=== PATIENT | female | born 1945 | race Caucasian/White ===

== ENCOUNTER → 2023-11-04 07:28 | Outpatient (REF) | payer MEDICARE, OTHER, SELFPAY ==
[2023-11-04 08:04] LABS: % Immature Granulocytes 0.3 % (0-0.5); % Lymphocytes 23.3 % (20.5-51.1); % Neutrophils 59.4 % (42.2-75.2); Absolute Eosinophils 0.2 10^3/uL (0-0.7); Absolute Lymphocytes 0.9 10^3/uL (1.2-3.4); Absolute Monocytes 0.5 10^3/uL (0.1-0.6); Absolute Neutrophils 2.4 10^3/uL (1.4-6.5); Hematocrit 36.2 % (37.0-47.0); Hemoglobin 11.6 g/dL (12.0-16.0); Mean Corpuscular Hgb 30.3 pg (27.0-31.0); Mean Corpuscular Volume 94.5 fL (81.0-99.0); Mean Platelet Volume 11.9 fL (7.4-10.4); Nucleated Red Blood Cells % 0 %; Platelet Count 181 10^3/uL (130-400); Red Blood Cell Count 3.83 10^6/uL (4.20-5.40); Red Cell Dist. Width 12.8 % (11.5-14.5)
[2023-11-04 08:49] LABS: Erythrocyte Sed Rate 24 mm/hour (0-20)
[2023-11-04 08:59] LABS: ALT (SGPT) 20 U/L (0-35); AST (SGOT) 27 U/L (14-36); Albumin 3.6 g/dl (3.5-5.0); Alkaline Phosphatase 55 U/L (38-126); Blood Urea Nitrogen 22 mg/dl (7-17); Calcium 8.9 mg/dl (8.4-10.2); Carbon Dioxide 25 mmol/L (22-30); Chloride 107 mmol/L (98-107); Glucose 100 mg/dl (70-99); Potassium 4.7 mmol/L (3.5-5.1); Sodium 140 mmol/L (135-145); Total Bilirubin 0.5 mg/dl (0.2-1.3); Total Protein 6.3 g/dl (6.3-8.2); eGFR 46.05
[2023-11-04 09:09] LABS: C-Reactive Protein < 5.00 mg/L (0.0-10.00)
== END ==
LOC: REG 07:28
PROVIDERS: ATTENDING PHYSICIAN Nurse Practitioner Family
DX: L03.90 Cellulitis, unspecified (principal)
CPT/HCPCS: 36415; 80053; 85025; 85652; 86140

== ENCOUNTER 2023-11-05 13:39 | Emergency (ER) | payer MEDICARE, OTHER, SELFPAY ==
[2023-11-05 13:50] VITALS: BP 141/84
[2023-11-05 14:10] LABS: % Eosinophils 4.2 % (0-6); % Immature Granulocytes 0.2 % (0-0.5); % Lymphocytes 20.8 % (20.5-51.1); % Neutrophils 61.8 % (42.2-75.2); Absolute Basophils 0.1 10^3/uL (0-0.2); Absolute Eosinophils 0.2 10^3/uL (0-0.7); Absolute Lymphocytes 1.1 10^3/uL (1.2-3.4); Absolute Monocytes 0.6 10^3/uL (0.1-0.6); Absolute Neutrophils 3.2 10^3/uL (1.4-6.5); Hematocrit 36.3 % (37.0-47.0); Hemoglobin 11.5 g/dL (12.0-16.0); Mean Corp Hgb Conc. 31.7 g/dL (33.0-37.0); Mean Corpuscular Hgb 30.7 pg (27.0-31.0); Mean Corpuscular Volume 97.1 fL (81.0-99.0); Mean Platelet Volume 11.4 fL (7.4-10.4); Nucleated Red Blood Cells % 0 %; Platelet Count 190 10^3/uL (130-400); Red Blood Cell Count 3.74 10^6/uL (4.20-5.40); Red Cell Dist. Width 12.8 % (11.5-14.5); White Blood Cell Count 5.2 10^3/uL (4.8-10.8)
[2023-11-05 14:19] LABS: ALT (SGPT) 20 U/L (0-35); AST (SGOT) 24 U/L (14-36); Albumin 3.6 g/dl (3.5-5.0); Alkaline Phosphatase 56 U/L (38-126); Blood Urea Nitrogen 19 mg/dl (7-17); Calcium 8.5 mg/dl (8.4-10.2); Carbon Dioxide 21 mmol/L (22-30); Chloride 110 mmol/L (98-107); Glucose 78 mg/dl (70-99); Potassium 4.4 mmol/L (3.5-5.1); Sodium 136 mmol/L (135-145); Total Bilirubin 0.3 mg/dl (0.2-1.3); Total Protein 6.2 g/dl (6.3-8.2); eGFR 51.11
--- NOTE | 2023-11-05 15:53 | ED.GENMED ---
History of Present Illness
General
Chief Complaint: Swelling
Source: patient
Exam Limitations: none
Time Seen by Provider: 11/05/23 15:51
Nursing documentation reviewed up to this point in time: agreed with
Travel History
Have you had any contact with someone who has COVID-19?: No
Do you have any symptoms of coronavirus? Fever > 100 degrees, chills, cough, shortness of breath, sore throat, loss of taste or smell, muscle aches, or headache?: No
History of Present Illness
History of Present Illness:
78 yo female w h/o L TKR 2000, R knee replacement 2017 here for swelling and pain right calf.
Recently diagnosed with cellulitis LLE after small wound from granddaughter kicking her left roman. Continues on Bactrim has had total 6 doses and states the area is slowly improving
She flew to [place] 10/26 and flew back on 10/31
The day she flew she noted swelling of both feet.
She played tennis several times and the swelling would go down but returned when no playing.
She has had persistent right calf pain and swelling since 10/26
Denies SOB,CP
Denies fever/chills
Past History
Past History
ED Past Medical History: Hypothyroidism and Other (Vertigo, gastroenteritis, vestibular migraine)
ED Past Surgical History: Orthopedic (Total knee replacement R&L knees)
Social History
Tobacco: Non-smoker
Alcohol: None
Drug: None
Living: with family
Employment: Retired
Family History
Family History: Other
Review of Systems
Review of Systems
Allergies reviewed?: Yes
All Other Systems: ROS reviewed and negative except as documented in HPI and ROS
Constitutional: Denies fever or chills
Respiratory: Denies cough or trouble breathing
Cardiac: Denies chest pain
ABD/GI: Denies abdominal pain, nausea or vomiting
Musculoskeletal: Reports edema (swelling R and left LE) and neck pain (chronic)
Skin: Reports other (scrape left roman healing well)
Neurological: Reports no symptoms
Phy Exam
Physical Exam
Physical Exam:
GENERAL: No acute distress. A&Ox3.
CONSTITUTIONAL: Afebrile.
EYES: clear, conjunctivae normal
RESPIRATORY: Regular respirations, nonlabored, lungs clear.
CARDIOVASCULAR: Regular rate and rhythm, no murmurs, no rubs.
GI: Soft, nontender, normal BS
MUSCULOSKELETAL: RLE with mild swelling, no redness or warmth, mild tenderness mid to lower calf. Distal neurovascular intact. LLE with mild swelling, roman clear dressing intact, no redness, warmth. No calf tenderness. Moves with ease. Well
perfused.
SKIN: Warm, dry, pink. Quarter sized darkened area, well healing abrasion, left roman is healing well, no drainage, dressing changed
PSYCH: Normal mood and affect. Well kept, interactive and appropriate
NEUROLOGIC: Awake, alert and oriented. No focal neurological deficits
Scores
Heart Failure Risk
Heart Failure Risk Score: Not Applicable
Course
Orders/Labs/Results
Orders:
Orders
11/05/23 13:54
Peripheral Venous Lwr Ext Bilat US [US Periph Venous LOWER Ext Warner] Urgent
Comment:
Reason For Exam: swelling
11/05/23 13:58
Complete Blood Count/With Diff Urgent
Comprehensive Metabolic Panel Urgent
Abnormal Lab Results
11/05/23
13:58
RBC 3.74 L 10^6/uL
(4.20-5.40)
Hgb 11.5 L g/dL
(12.0-16.0)
Hct 36.3 L %
(37.0-47.0)
MCHC 31.7 L g/dL
(33.0-37.0)
MPV 11.4 H fL
(7.4-10.4)
Absolute Lymphs (auto) 1.1 L 10^3/uL
(1.2-3.4)
Monocytes % 12.0 H %
(1.7-9.3)
Chloride 110 H mmol/L
(98-107)
Carbon Dioxide 21 L mmol/L
(22-30)
BUN 19 H mg/dl
(7-17)
Creatinine 1.1 H mg/dL
(0.6-1.0)
Total Protein 6.2 L g/dl
(6.3-8.2)
11/05/23 13:58
11/05/23 13:58
Vital Signs
Initial and Last Documented VS:
Initial Vital Signs
Temp Pulse Resp BP Pulse Ox
98.4 F 85 16 141/84 98
11/05/23 13:50 11/05/23 13:50 11/05/23 13:50 11/05/23 13:50 11/05/23 13:50
Last Documented Vital Signs
Temp Pulse Resp BP Pulse Ox
98.4 F 85 16 141/84 98
11/05/23 13:50 11/05/23 13:50 11/05/23 13:50 11/05/23 13:50 11/05/23 13:50
MDM/Problems Addressed
Differential Diagnosis Includes:
DVT, PVD, dependent edema
MDM/Problems Addressed:
78 yo female w h/o L TKR 2000, R knee replacement 2017 here for swelling and pain right calf.
Recently diagnosed with cellulitis LLE after small wound from granddaughter kicking her left roman. Continues on Bactrim has had total 6 doses and states the area is slowly improving
She flew to [place] 10/26 and flew back on 10/31
The day she flew she noted swelling of both feet.
She played tennis several times and the swelling would go down but returned when no playing.
She has had persistent right calf pain and swelling since 10/26
Denies SOB,CP
Denies fever/chills
Afebrile, NAD
11/05/2023 1618 PM
CBC with no clinically significant abnormality
CMP: No clinically significant abnormality
US neg for DVT
Most likely dependent edema
*Critical Care Note
Total Time (30-74mins, 75-104mins- exclusive of procedures): Not Applicable
ED Attending Note
-
Portions of this chart may have been created with voice recognition software.� Occasional wrong word or��sound alike� substitutions may have occurred due to the inherent limitations of voice recognition software.
Discharge Plan
Departure
Patient Disposition: Home (Routine Discharge)
Date of Disposition: 11/05/23
Time of Disposition: 18:06
Patient with high blood pressure during this ER visit?: No
Condition: Good
Discharge Problem:
Leg swelling
Instructions: Dependent Edema (DC)
Prescriptions:
No Action
levothyroxine 50 MCG tablet
50 mcg PO DAILY
ibuprofen 200 MG tablet
400 mg PO Q6HPRN PRN (Reason: mild pain)
docusate sodium 100 MG capsule
100 mg PO BIDPRN PRN (Reason: constipation)
metaxalone [Skelaxin] 800 MG tablet
800 mg PO DAILYPRN PRN (Reason: muscle spasm)
metoclopramide HCl 5 MG tablet
5 mg PO Q12H PRN (Reason: vertigo) Qty: 30 0RF
Rx Instructions:
No more then 2 doses a day
aspirin [Adult Aspirin Regimen] 81 MG tablet,delayed release (DR/EC)
81 mg PO DAILY Qty: 30 0RF
atorvastatin [Lipitor] 40 MG tablet
40 mg PO DAILY Qty: 30 0RF
metoclopramide HCl 5 mg/5 mL solution
5 mg PO Q8H PRN (Reason: nausea and vomiting) Qty: 100 0RF
Referrals:
Asuncion Leigh CRNP [Family Provider] - As needed
Activity Restrictions/Additional Instructions:
As we discussed, your Ultrasound showed NO clots. Support stockings may help the swelling.
See your doctor in 2-3 weeks if the swelling continues or worsens
Interventions
Interventions:
*Risk Screen - Suicide Last Done: 11/05/23 13:50
*General Assessment Last Done: 11/05/23 13:50
*Neglect/Abuse Screening Last Done: 11/05/23 13:50
ED- Fall Risk Assessment Last Done: 11/05/23 18:23
*ED COVID-19 Vaccine History Last Done: 11/05/23 13:50
*Nursing Disposition Last Done: 11/05/23 18:23
ED- Cardiac Assessment Last Done: 11/05/23 17:10
ED- Pulmonary Assessment Last Done: 11/05/23 17:10
ED-Skin Assessment Last Done: 11/05/23 17:10
Discharge Date and Time
Discharge Date/Time: 11/05/23 18:24
Print Language: KOREAN
== END 2023-11-05 18:24 | disposition home or self-care (01) ==
LOC: EMR 13:39
PROVIDERS: Emergency Medicine; EMERGENCY PHYSICIAN Emergency Medicine; FAMILY PHYSICIAN Nurse Practitioner Family
DX: R22.41 Localized swelling, mass and lump, right lower limb (principal)
CPT/HCPCS: 99284; 80053; 85025; 93970

== ENCOUNTER → 2024-01-20 13:35 | Outpatient (REF) | payer MEDICARE, OTHER, SELFPAY | LOC: RCS 13:35 | PROVIDERS: ATTENDING PHYSICIAN Physician Assistant Medical; FAMILY PHYSICIAN Family Medicine | DX: R06.02 Shortness of breath (principal); R60.0 Localized edema | CPT/HCPCS: 93306 ==

== ENCOUNTER → 2024-05-07 08:22 | Outpatient (REF) | payer MEDICARE, OTHER, SELFPAY ==
[2024-05-07 09:17] LABS: % Basophils 0.8 % (0-2); % Eosinophils 3.6 % (0-6); % Immature Granulocytes 0.4 % (0-0.5); % Lymphocytes 23.9 % (20.5-51.1); % Monocytes 9.7 % (1.7-9.3); % Neutrophils 61.6 % (42.2-75.2); Absolute Eosinophils 0.2 10^3/uL (0-0.7); Absolute Lymphocytes 1.1 10^3/uL (1.2-3.4); Absolute Monocytes 0.5 10^3/uL (0.1-0.6); Absolute Neutrophils 2.9 10^3/uL (1.4-6.5); Hematocrit 35.7 % (37.0-47.0); Hemoglobin 11.5 g/dL (12.0-16.0); Mean Corp Hgb Conc. 32.2 g/dL (33.0-37.0); Mean Corpuscular Hgb 30.8 pg (27.0-31.0); Mean Corpuscular Volume 95.7 fL (81.0-99.0); Mean Platelet Volume 11.7 fL (7.4-10.4); Nucleated Red Blood Cells % 0 %; Platelet Count 176 10^3/uL (130-400); Red Blood Cell Count 3.73 10^6/uL (4.20-5.40); Red Cell Dist. Width 12.6 % (11.5-14.5); White Blood Cell Count 4.7 10^3/uL (4.8-10.8)
[2024-05-07 09:22] LABS: Erythrocyte Sed Rate 20 mm/hour (0-20)
[2024-05-07 10:23] LABS: C-Reactive Protein < 5.00 mg/L (0.0-10.00)
[2024-05-07 10:24] LABS: ALT (SGPT) 18 U/L (0-35); AST (SGOT) 26 U/L (14-36); Albumin 3.9 g/dl (3.5-5.0); Alkaline Phosphatase 47 U/L (38-126); Blood Urea Nitrogen 20 mg/dl (7-17); Carbon Dioxide 26 mmol/L (22-30); Chloride 106 mmol/L (98-107); Glucose 90 mg/dl (70-99); HDL Cholesterol 61 mg/dl; LDL Cholesterol, Calculated 176 mg/dl; Potassium 4.9 mmol/L (3.5-5.1); Sodium 142 mmol/L (135-145); Total Bilirubin 0.6 mg/dl (0.2-1.3); Total Cholesterol 259 mg/dl (50-199); Total Protein 6.5 g/dl (6.3-8.2); Triglyceride 114 mg/dl (10-149); Very Low Density Lipoprotein 22 mg/dl (0-30); eGFR 56.95
[2024-05-09 00:43] LABS: ANA, IgG Reflex to HEp-2 None Detected (None Detected)
[2024-05-09 01:50] LABS: SSA 52 (Ro)(ENA) Ab, IgG 3 AU/mL (0-40); SSA 60 (Ro)(ENA) Ab, IgG 1 AU/mL (0-40); SSB (La)(ENA) Ab, IgG 27 AU/mL (0-40)
== END ==
LOC: REG 08:22
PROVIDERS: ATTENDING PHYSICIAN Nurse Practitioner Family
DX: R68.2 Dry mouth, unspecified (principal); Z13.220 Encounter for screening for lipoid disorders; E78.41 Elevated Lipoprotein(a); R79.9 Abnormal finding of blood chemistry, unspecified
CPT/HCPCS: 36415; 80053; 80061; 85025; 85652; 86038; 86140; 86235; 86430

== ENCOUNTER → 2024-08-10 17:54 | Outpatient (REF) | payer MEDICARE, OTHER, SELFPAY | LOC: RAD 17:54 | PROVIDERS: ATTENDING PHYSICIAN Student in an Organized Health Care Education/Training Program | DX: M50.123 Cervical disc disorder at C6-C7 level with radiculopathy (principal); M81.0 Age-related osteoporosis without current pathological fracture | CPT/HCPCS: 72040; 72072; 72100 ==

== ENCOUNTER → 2024-09-08 14:16 | Outpatient (REF) | payer MEDICARE, OTHER, SELFPAY ==
[2024-09-08 14:51] LABS: % Basophils 0.7 % (0-2); % Eosinophils 3.1 % (0-6); % Immature Granulocytes 0.2 % (0-0.5); % Lymphocytes 22.4 % (20.5-51.1); % Monocytes 10.1 % (1.7-9.3); % Neutrophils 63.5 % (42.2-75.2); Absolute Eosinophils 0.2 10^3/uL (0-0.7); Absolute Lymphocytes 1.3 10^3/uL (1.2-3.4); Absolute Monocytes 0.6 10^3/uL (0.1-0.6); Absolute Neutrophils 3.7 10^3/uL (1.4-6.5); Hematocrit 37.4 % (37.0-47.0); Hemoglobin 12.1 g/dL (12.0-16.0); Mean Corp Hgb Conc. 32.4 g/dL (33.0-37.0); Mean Corpuscular Hgb 30.9 pg (27.0-31.0); Mean Corpuscular Volume 95.7 fL (81.0-99.0); Mean Platelet Volume 11.4 fL (7.4-10.4); Nucleated Red Blood Cells % 0 %; Platelet Count 191 10^3/uL (130-400); Red Blood Cell Count 3.91 10^6/uL (4.20-5.40); Red Cell Dist. Width 12.7 % (11.5-14.5); White Blood Cell Count 5.9 10^3/uL (4.8-10.8)
[2024-09-08 15:39] LABS: ALT (SGPT) 23 U/L (0-35); AST (SGOT) 29 U/L (14-36); Albumin 4.3 g/dl (3.5-5.0); Alkaline Phosphatase 72 U/L (38-126); Blood Urea Nitrogen 22 mg/dl (7-17); Calcium 9.2 mg/dl (8.4-10.2); Carbon Dioxide 26 mmol/L (22-30); Chloride 102 mmol/L (98-107); Glucose 93 mg/dl (70-99); Potassium 4.9 mmol/L (3.5-5.1); Sodium 137 mmol/L (135-145); Total Bilirubin 0.7 mg/dl (0.2-1.3); Total Protein 6.9 g/dl (6.3-8.2)
[2024-09-08 16:09] LABS: TSH 2.96 uIU/ml (0.47-4.68)
== END ==
LOC: REG 14:16
PROVIDERS: ATTENDING PHYSICIAN Student in an Organized Health Care Education/Training Program; FAMILY PHYSICIAN Nurse Practitioner Family; REFERRING PHYSICIAN Family Medicine
DX: E55.9 Vitamin D deficiency, unspecified (principal); M50.90 Cervical disc disorder, unspecified, unspecified cervical region; M81.0 Age-related osteoporosis without current pathological fracture; R94.6 Abnormal results of thyroid function studies
CPT/HCPCS: 36415; 80053; 82330; 82652; 84443; 85025

== ENCOUNTER 2024-12-13 21:08 | Emergency (ER) | payer MEDICARE, OTHER, SELFPAY ==
[2024-12-13 21:14] VITALS: BP 121/74
[2024-12-13] MEDS: ZOFRAN 4 MG IV (21:26)
[2024-12-13 21:33] LABS: % Basophils 0.3 % (0-2); % Immature Granulocytes 0.3 % (0-0.5); % Lymphocytes 5.2 % (20.5-51.1); % Neutrophils 85.2 % (42.2-75.2); Absolute Lymphocytes 0.4 10^3/uL (1.2-3.4); Absolute Monocytes 0.6 10^3/uL (0.1-0.6); Absolute Neutrophils 5.9 10^3/uL (1.4-6.5); Hematocrit 40.8 % (37.0-47.0); Hemoglobin 13.3 g/dL (12.0-16.0); Mean Corp Hgb Conc. 32.6 g/dL (33.0-37.0); Mean Corpuscular Hgb 30.6 pg (27.0-31.0); Mean Platelet Volume 11.6 fL (7.4-10.4); Nucleated Red Blood Cells % 0 %; Platelet Count 166 10^3/uL (130-400); Red Blood Cell Count 4.34 10^6/uL (4.20-5.40); Red Cell Dist. Width 12.9 % (11.5-14.5); White Blood Cell Count 6.9 10^3/uL (4.8-10.8)
[2024-12-13 21:44] LABS: Lactic Acid 0.7 mmol/L (0.7-2.0)
[2024-12-13 21:49] LABS: ALT (SGPT) 34 U/L (0-35); AST (SGOT) 40 U/L (14-36); Albumin 4.1 g/dl (3.5-5.0); Alkaline Phosphatase 52 U/L (38-126); Blood Urea Nitrogen 16 mg/dl (7-17); Calcium 7.9 mg/dl (8.4-10.2); Carbon Dioxide 19 mmol/L (22-30); Chloride 111 mmol/L (98-107); Glucose 133 mg/dl (70-99); Potassium 4.1 mmol/L (3.5-5.1); Sodium 138 mmol/L (135-145); Total Bilirubin 0.6 mg/dl (0.2-1.3); Total Protein 6.9 g/dl (6.3-8.2); eGFR 56.95
[2024-12-13 21:50] LABS: Lipase 151 U/L (23-300)
[2024-12-14 01:02] VITALS: BP 122/76
--- NOTE | 2024-12-14 01:47 | ED.GENMED ---
History of Present Illness
<CHRISTOPHER Carrion Last Filed: 12/14/24 09:30>
General
Chief Complaint: Abdominal Symptoms
Source: patient
Exam Limitations: none
Time Seen by Provider: 12/14/24 01:42
Nursing documentation reviewed up to this point in time: agreed with
History of Present Illness
History of Present Illness:
79-year-old female with a past medical history of Lyme disease, vestibular migraines, hypothyroidism, GERD, presents emergency department today with concerns of diffuse abdominal pain and vomiting. Patient reports that this started yesterday
evening around 6 PM. Patient states that she was sitting in her living room with it started. She reports that was not related to a meal. Patient describes the pain as cramping and reports that it wraps around to her back. She denies any fevers
or chills. She states that her granddaughter was recently sick with a stomach virus and she was in contact with her. She states that she did have 1 episode of diarrhea. She denies any rectal bleeding. She denies any dysuria or hematuria. She
denies any chest pain or shortness of breath. Patient had an appendectomy in the past but denies any other intra-abdominal surgeries. She denies any history of bowel obstruction.
Past History
<Mery Braun PA-C - Last Filed: 12/14/24 09:30>
Past History
ED Past Medical History: Hypothyroidism and Other (Vertigo, gastroenteritis, vestibular migraine)
ED Past Surgical History: Orthopedic (Total knee replacement R&L knees)
Social History
Tobacco: Non-smoker
Alcohol: None
Drug: None
Living: with family
Employment: Retired
Family History
Family History: Other
Review of Systems
<Mery Braun PA-C - Last Filed: 12/14/24 09:30>
Review of Systems
All Other Systems: ROS reviewed and negative except as documented in HPI and ROS
Phy Exam
<Mery Braun PA-C - Last Filed: 12/14/24 09:30>
Physical Exam
Physical Exam:
General: Patient is well appearing and in no acute distress; non-toxic
Skin: Warm and dry, no rashes or lesions
Head: Normocephalic, atraumatic
Eyes: Sclera non-icteric. EOMs intact.
Cardiac: Regular rate and rhythm, no murmurs
Peripheral Vascular: No lower extremity swelling or edema
Pulm: Normal respiratory effort, no wheezes, rales, rhonchi
Abdomen: No abdominal distention noted. Normoactive bowel sounds. Diffuse lower abdominal tenderness noted, no rebound tenderness, no guarding
Neuro: CN II-XII intact, no focal neurologic deficits.
Psychiatric: Appropriate mood and affect.
Course
<Mery Braun PA-C - Last Filed: 12/14/24 09:30>
Orders/Labs/Results
Orders:
Orders
12/13/24 21:24
Complete Blood Count/With Diff Urgent
Comprehensive Metabolic Panel Urgent
Lactic Acid Urgent
Lipase Urgent
Magnesium Urgent
Comment: ADD ON
12/13/24 21:25
Ondansetron Injectable [Zofran] 4 mg IV NOW STA
12/14/24 02:00
Ondansetron Injectable [Zofran] 4 mg IV NOW STA
12/14/24 02:01
CT Abd/pelvis W Iv Cont Urgent
Comment:
Reason For Exam: diffuse lower abdominal pain
12/14/24 04:26
Add On- LAB Urgent
Tests Added?: magnesium
12/14/24 04:45
US Abdomen Limited Urgent
Comment:
Reason For Exam: abdominal pain attn to gallbladder
12/14/24 05:25
Urinalysis Reflex To Culture Urgent
Date Specimen was Collected: 12/14/24
Time Specimen was Collected: 05:24
Urine Microscopic Reflex Cult Urgent
Urine Culture Urgent
LEDA Source: U
Specimen Description:
Date Specimen was Collected: 12/14/24
Time Specimen was Collected: 05:24
12/14/24 05:56
Calcium 200mg(Ca. Carb. 500mg) [Tums Chewable Tablet] 400 mg PO NOW STA
12/14/24 06:05
Ondansetron Injectable [Zofran] 4 mg .ROUTE .STK-MED ONE
Ondansetron Injectable [Zofran] 4 mg IV NOW STA
12/14/24 06:09
0.9% Sodium Chloride 500 ml [Nss] 500 ml IV BOLUS
12/14/24 08:10
Acetaminophen [Tylenol] 650 mg .ROUTE .STK-MED ONE
12/14/24 08:20
COVID-19 Antigen Urgent
Source: Nasal Swab
Influenza A+B Rapid Molecular Urgent
LEDA Source: Nasal Swab
Specimen Description:
12/14/24 08:22
Acetaminophen [Tylenol] 650 mg PO NOW STA
Abnormal Lab Results
12/13/24 12/14/24
21:24 05:25
MCHC 32.6 L g/dL
(33.0-37.0)
MPV 11.6 H fL
(7.4-10.4)
Absolute Lymphs (auto) 0.4 L 10^3/uL
(1.2-3.4)
Neutrophils % 85.2 H %
(42.2-75.2)
Lymphocytes % 5.2 L %
(20.5-51.1)
Chloride 111 H mmol/L
(98-107)
Carbon Dioxide 19 L mmol/L
(22-30)
Glucose 133 H mg/dl
(70-99)
Calcium 7.9 L mg/dl
(8.4-10.2)
AST 40 H U/L
(14-36)
Ur Occult Blood Reflex 3+ A
(Negative)
Leukocyte Esterase Rfl 1+ A
(Negative)
Urine RBC 3-6 A /HPF
(0-2)
Urine Bacteria (Reflex) Few A
(Negative)
Urine Albumin (Reflex) 2+ A
(Neg - Trace)
12/13/24 21:24
12/13/24 21:24
Vital Signs
Initial and Last Documented VS:
Initial Vital Signs
Temp Pulse Resp BP Pulse Ox
97.9 F 97 20 121/74 95
12/13/24 21:14 12/13/24 21:14 12/13/24 21:14 12/13/24 21:14 12/13/24 21:14
Last Documented Vital Signs
Temp Pulse Resp BP Pulse Ox
101.4 F H 103 18 119/59 94
12/14/24 08:12 12/14/24 06:09 12/14/24 06:09 12/14/24 08:06 12/14/24 08:06
<Jacqueline Youssef PA-C - Last Filed: 12/14/24 09:26>
Orders/Labs/Results
Orders:
Orders
12/13/24 21:24
Complete Blood Count/With Diff Urgent
Comprehensive Metabolic Panel Urgent
Lactic Acid Urgent
Lipase Urgent
Magnesium Urgent
Comment: ADD ON
12/13/24 21:25
Ondansetron Injectable [Zofran] 4 mg IV NOW STA
12/14/24 02:00
Ondansetron Injectable [Zofran] 4 mg IV NOW STA
12/14/24 02:01
CT Abd/pelvis W Iv Cont Urgent
Comment:
Reason For Exam: diffuse lower abdominal pain
12/14/24 04:26
Add On- LAB Urgent
Tests Added?: magnesium
12/14/24 04:45
US Abdomen Limited Urgent
Comment:
Reason For Exam: abdominal pain attn to gallbladder
12/14/24 05:25
Urinalysis Reflex To Culture Urgent
Date Specimen was Collected: 12/14/24
Time Specimen was Collected: 05:24
Urine Microscopic Reflex Cult Urgent
Urine Culture Urgent
LEDA Source: U
Specimen Description:
Date Specimen was Collected: 12/14/24
Time Specimen was Collected: 05:24
12/14/24 05:56
Calcium 200mg(Ca. Carb. 500mg) [Tums Chewable Tablet] 400 mg PO NOW STA
12/14/24 06:05
Ondansetron Injectable [Zofran] 4 mg .ROUTE .STK-MED ONE
Ondansetron Injectable [Zofran] 4 mg IV NOW STA
12/14/24 06:09
0.9% Sodium Chloride 500 ml [Nss] 500 ml IV BOLUS
12/14/24 08:10
Acetaminophen [Tylenol] 650 mg .ROUTE .STK-MED ONE
12/14/24 08:20
COVID-19 Antigen Urgent
Source: Nasal Swab
Influenza A+B Rapid Molecular Urgent
LEDA Source: Nasal Swab
Specimen Description:
12/14/24 08:22
Acetaminophen [Tylenol] 650 mg PO NOW STA
Abnormal Lab Results
12/13/24 12/14/24
21:24 05:25
MCHC 32.6 L g/dL
(33.0-37.0)
MPV 11.6 H fL
(7.4-10.4)
Absolute Lymphs (auto) 0.4 L 10^3/uL
(1.2-3.4)
Neutrophils % 85.2 H %
(42.2-75.2)
Lymphocytes % 5.2 L %
(20.5-51.1)
Chloride 111 H mmol/L
(98-107)
Carbon Dioxide 19 L mmol/L
(22-30)
Glucose 133 H mg/dl
(70-99)
Calcium 7.9 L mg/dl
(8.4-10.2)
AST 40 H U/L
(14-36)
Ur Occult Blood Reflex 3+ A
(Negative)
Leukocyte Esterase Rfl 1+ A
(Negative)
Urine RBC 3-6 A /HPF
(0-2)
Urine Bacteria (Reflex) Few A
(Negative)
Urine Albumin (Reflex) 2+ A
(Neg - Trace)
12/13/24 21:24
12/13/24 21:24
Vital Signs
Initial and Last Documented VS:
Initial Vital Signs
Temp Pulse Resp BP Pulse Ox
97.9 F 97 20 121/74 95
12/13/24 21:14 12/13/24 21:14 12/13/24 21:14 12/13/24 21:14 12/13/24 21:14
Last Documented Vital Signs
Temp Pulse Resp BP Pulse Ox
101.4 F H 103 18 119/59 94
12/14/24 08:12 12/14/24 06:09 12/14/24 06:09 12/14/24 08:06 12/14/24 08:06
Lichalt;Mery Braun PA-C - Last Filed: 12/14/24 09:30>
MDM/Problems Addressed
Differential Diagnosis Includes:
Differentials include small bowel obstruction, diverticulitis, gastroenteritis, colitis
MDM/Problems Addressed:
79-year-old female with a past medical history of Lyme disease, vestibular migraines, hypothyroidism, GERD, presents emergency department today with concerns of diffuse abdominal pain and vomiting. Patient reports that this started yesterday
evening around 6 PM. Patient states that she was sitting in her living room with it started. The pain resolved without intervention. Patient is declining medication for pain at this time. On PE, patient is well appearing, in no acute distress, she
has minimal abdominal tenderness. She is afebrile. She CT scan shows acute gastroenteritis with and gall bladder distension with normal wbc. US obtained which is negative for cholecystitis. Patient had midly low calcium, was given calcium tablets
and advised to follow up with her primary. Patient stable for discharge.
Chronic conditions affecting care:
lyme, vestibular migraines
<Mery Braun PA-C - Last Filed: 12/14/24 09:30>
*Pulse Oximetry
Patient hypoxic: no
*Critical Care Note
Total Time (30-74mins, 75-104mins- exclusive of procedures): Not Applicable
Data Reviewed
Review of Other/Old Records Reveals: Records (reviewed er doc from 11/05/23, reviewed discharge from 05/28/18 patient seen for persistent vertigo diagnosed with vestibular migraine)
Source: patient and records
<Jacqueline Youssef PA-C - Last Filed: 12/14/24 09:26>
*Critical Care Note
Total Time (30-74mins, 75-104mins- exclusive of procedures): Not Applicable
<Mery Braun PA-C - Last Filed: 12/14/24 09:30>
Patient Management
Escalation/DeEscalation of care consider admission/obs:
Admit not indicated patient stable for discharge
<Jacqueline Youssef PA-C - Last Filed: 12/14/24 09:26>
Update Note
Update Note:
Patient spiked a fever of 101.4 at time of discharge and I was asked to evaluate patient by nursing staff. On reassessment, patient is well appearing and states she feels much better than when she arrived. She denies any abdominal pain currently and
is tolerating PO intake. Both white count and lactate are normal. Exam reassuring without any focal signs of infection. Abdomen is soft and non-tender. COVID/flu testing added which are negative. I discussed case with initial provider. Patient
remains stable for discharge. She was advised to f/u with her PCP in the next 1-2 days. Strict ED return precautions reviewed.
ED Attending Note
<Mery Braun PA-C - Last Filed: 12/14/24 09:30>
-
Portions of this chart may have been created with voice recognition software.� Occasional wrong word or��sound alike� substitutions may have occurred due to the inherent limitations of voice recognition software.
Discharge Plan
Departure
Patient Disposition: Home (Routine Discharge)
Date of Disposition: 12/14/24
Time of Disposition: 07:23
Patient with high blood pressure during this ER visit?: Yes
Condition: Good
Discharge Problem:
Acute gastroenteritis
Instructions: Viral gastroenteritis in adults, BLOOD PRESSURE
Prescriptions:
New
ondansetron 4 mg tablet,disintegrating
4 mg PO Q4H PRN (Reason: nausea and vomiting) Qty: 10 0RF
No Action
levothyroxine 50 MCG tablet
50 mcg PO DAILY
metaxalone [Skelaxin] 800 MG tablet
800 mg PO DAILYPRN PRN (Reason: muscle spasm)
ondansetron HCl [Zofran] 4 mg Tablet
4 mg PO Q6H PRN (Reason: nausea)
omeprazole [Prilosec] 40 mg Capsule,Delayed Release(Dr/Ec)
40 mg PO DAILY
topiramate [Topamax] 50 mg Tablet
75 mg PO BID
duloxetine 60 mg Capsule,Delayed Release(Dr/Ec)
60 mg PO DAILY
Prolia 60 mg/mL Syringe
60 mg SC [id number]
naltrexone 4.5 mg Capsule
PO
Referrals:
Asuncion Leigh CRNP [Family Provider] -
Activity Restrictions/Additional Instructions:
Your CT scan showed acute gastroenteritis with no evidence of perforation or obstruction within the bowel. Your ultrasound of the gallbladder did not show any signs of gallbladder infection.
Please continue to stay well-hydrated and take sips of water. You can use Zofran every 4 hours as needed for nausea and vomiting. Please follow-up with your primary care provider. Your calcium was low today and we did give you oral calcium to
replete this. Please have your blood work repeated in 1 week.
PLEASE RETURN EMERGENCY DEPARTMENT SHOULD YOU DEVELOP ABDOMINAL PAIN, CHEST PAIN, FEVERS OR CHILLS, INTRACTABLE NAUSEA OR VOMITING, INABILITY TOLERATE ORAL INTAKE, CHEST PAIN, SHORTNESS OF BREATH, OR ANY OTHER SIGNS OR SYMPTOMS WORRISOME TO YOU.
Interventions
Interventions:
*Risk Screen - Suicide Last Done: 12/14/24 02:37
*General Assessment Last Done: 12/13/24 21:14
*Neglect/Abuse Screening Last Done: 12/14/24 02:37
*ED- Fall Risk Assessment Last Done: 12/14/24 02:37
*ED COVID-19 Vaccine History Last Done: 12/14/24 02:41
[id number] Assessment Last Done: 12/14/24 02:39
Discharge Date and Time
Print Language: [place]ESE
[2024-12-14] MEDS: ZOFRAN 4 MG IV ×2 (02:28→06:06)
[2024-12-14 02:35] VITALS: BP 130/80
[2024-12-14 02:36] VITALS: BMI 22.1
[2024-12-14 05:10] LABS: Magnesium 1.9 mg/dl (1.6-2.3)
[2024-12-14] MEDS: TUMS CHEWABLE TABLET 400 MG PO (06:03)
[2024-12-14 06:05] LABS: Urine Albumin 2+ (Neg - Trace); Urine Bilirubin Negative (Negative); Urine Character Clear (Clear); Urine Color Yellow; Urine Glucose Negative (Negative); Urine Ketone Negative (Negative); Urine Leukocyte 1+ (Negative); Urine Nitrite Negative (Negative); Urine Occult Blood 3+ (Negative); Urine Specific Gravity 1.015 (<1.030); Urine Urobilinogen Negative (Neg - 1+)
[2024-12-14 06:09] VITALS: BP 151/94
[2024-12-14] MEDS: NSS 500 IV (06:14)
[2024-12-14 07:00] LABS: Urine Bacteria Few (Negative)
[2024-12-14 08:06] VITALS: BP 119/59
[2024-12-14] MEDS: TYLENOL 650 MG PO (08:24)
[2024-12-14 08:46] LABS: COVID-19 Antigen Negative (Negative)
[2024-12-14 09:00] VITALS: BP 97/57
== END 2024-12-14 09:25 | disposition home or self-care (01) ==
LOC: EMR 21:08
PROVIDERS: Physician Assistant; Student in an Organized Health Care Education/Training Program; EMERGENCY PHYSICIAN Emergency Medicine; FAMILY PHYSICIAN Nurse Practitioner Family
DX: K52.9 Noninfective gastroenteritis and colitis, unspecified (principal); E03.9 Hypothyroidism, unspecified; G43.809 Other migraine, not intractable, without status migrainosus; Z11.52 Encounter for screening for COVID-19
CPT/HCPCS: 96374; 96376; 99284; 74177; 76705; 80053; 81003; 81015; 83605; 83690; 83735; 85025; 87086; 87502; 87811; Q9967

== ENCOUNTER 2025-04-11 12:20 | Emergency (ER) | payer MEDICARE, OTHER, SELFPAY ==
[2025-04-11 12:27] VITALS: BP 97/61
[2025-04-11 14:10] VITALS: BMI 22.8
[2025-04-11] MEDS: NSS 1000 IV (14:33)
[2025-04-11 14:40] LABS: Hematocrit 35.4 % (37.0-47.0); Hemoglobin 11.6 g/dL (12.0-16.0); Mean Corp Hgb Conc. 32.8 g/dL (33.0-37.0); Mean Corpuscular Volume 91.0 fL (81.0-99.0); Nucleated Red Blood Cells % 0 %; Platelet Count 280 10^3/uL (130-400); Red Cell Dist. Width 12.7 % (11.5-14.5)
[2025-04-11 14:53] LABS: ALT (SGPT) 14 U/L (0-35); AST (SGOT) 18 U/L (14-36); Albumin 3.4 g/dl (3.5-5.0); Alkaline Phosphatase 86 U/L (38-126); Blood Urea Nitrogen 20 mg/dl (7-17); Calcium 7.5 mg/dl (8.4-10.2); Carbon Dioxide 22 mmol/L (22-30); Chloride 105 mmol/L (98-107); Estimated Creatinine Clearance 38 ml/min; Glucose 112 mg/dl (70-99); Potassium 4.7 mmol/L (3.5-5.1); Sodium 134 mmol/L (135-145); Total Protein 6.7 g/dl (6.3-8.2); eGFR 56.60
[2025-04-11 15:19] VITALS: BP 115/50
[2025-04-11 15:32] LABS: COVID-19 Antigen Negative (Negative)
--- NOTE | 2025-04-11 15:36 | ED.GENMED ---
History of Present Illness
General
Chief Complaint: Cold/Flu/URI Symptoms
Time Seen by Provider: 04/11/25 13:54
Nursing documentation reviewed up to this point in time: agreed with
History of Present Illness
History of Present Illness:
80-year-old female presents to the ER with her daughter for evaluation of cough, weakness, poor appetite which have been present and worsening over the past 2 weeks. Patient is typically a very physically active woman, she teaches tennis 5 days a
week. She lives independently. She reports that she had traveled with her friends and many of them came back with similar cough and cold symptoms. She saw her family doctor last week and was diagnosed with bronchitis. She has been using Tessalon
and an inhaler without any improvement in her symptoms prompting visit to the ER today. No reported fever. She did have vomiting and diarrhea last week. She reports her cough is productive of yellow-brown sputum. She also reported feeling
lightheaded with standing. She has a history of vestibular migraines but has not been having any vertigo. She denies change in urine output
Past History
Past History
ED Past Medical History: Hypothyroidism and Other (Vertigo, gastroenteritis, vestibular migraine)
ED Past Surgical History: Orthopedic (Total knee replacement R&L knees)
Social History
Tobacco: Non-smoker
Alcohol: None
Drug: None
Living: with family
Employment: Retired
Family History
Family History: Other
Review of Systems
Review of Systems
Allergies reviewed?: Yes
Phy Exam
Physical Exam
Physical Exam:
Patient is awake, alert, appears younger than stated age appears in no acute distress, head is NCAT, PERRL, EOMI mucous membranes tacky, conjunctiva pink, heart regular rate and rhythm without murmurs or ectopy, lungs with coarse breath sounds heard
over the right hemithorax, left lung is clear to auscultation, cough with deep inspiration, no JVD, abdomen is soft and nontender on palpation, extremities without edema, GCS is 15
Course
Orders/Labs/Results
Orders:
Orders
04/11/25 14:04
IV Insert/Care/Rem.- Treatment PRN
0.9% Sodium Chloride 1000 ml [Nss] 1,000 ml IV BOLUS
Pulse Ox/cont/shift [RESP] Stat
Quantity: 1
04/11/25 14:05
CR Chest - 2 Views Urgent
Comment:
Reason For Exam: cough
04/11/25 14:14
COVID-19 Antigen Urgent
Source: Nasal Swab
Complete Blood Count/With Diff Urgent
Comprehensive Metabolic Panel Urgent
Influenza A+B Rapid Molecular Urgent
LEDA Source: Nasal Swab
Specimen Description:
04/11/25 15:29
Azithromycin [Zithromax] 500 mg PO NOW STA
CefTRIAXone [Rocephin] 1,000 mg IV NOW STA
04/11/25 16:24
Ipratropium/Albuterol Sulfate [Duoneb] 3 ml INH R NOW ONE
Abnormal Lab Results
04/11/25
14:14
WBC 12.5 H 10^3/uL
(4.8-10.8)
RBC 3.89 L 10^6/uL
(4.20-5.40)
Hgb 11.6 L g/dL
(12.0-16.0)
Hct 35.4 L %
(37.0-47.0)
MCHC 32.8 L g/dL
(33.0-37.0)
MPV 10.5 H fL
(7.4-10.4)
Abs Immat Gran (auto) 0.2 H 10^3/uL
(0-0.05)
Absolute Neuts (auto) 10.5 H 10^3/uL
(1.4-6.5)
Absolute Lymphs (auto) 0.9 L 10^3/uL
(1.2-3.4)
Absolute Monos (auto) 0.9 H 10^3/uL
(0.1-0.6)
Immature Gran % 1.2 H %
(0-0.5)
Neutrophils % 84.0 H %
(42.2-75.2)
Lymphocytes % 7.0 L %
(20.5-51.1)
Sodium 134 L mmol/L
(135-145)
BUN 20 H mg/dl
(7-17)
Glucose 112 H mg/dl
(70-99)
Calcium 7.5 L mg/dl
(8.4-10.2)
Albumin 3.4 L g/dl
(3.5-5.0)
04/11/25 14:14
04/11/25 14:14
Mild elevation in white blood count. Minimal hyponatremia noted. Mild elevation in BUN with preserved creatinine.
Vital Signs
Initial and Last Documented VS:
Initial Vital Signs
Temp Pulse Resp BP Pulse Ox
97.8 F 98 20 97/61 92
04/11/25 12:27 04/11/25 12:27 04/11/25 12:27 04/11/25 12:27 04/11/25 12:27
Last Documented Vital Signs
Temp Pulse Resp BP Pulse Ox
97.8 F 87 23 112/56 98
04/11/25 12:27 04/11/25 16:30 04/11/25 16:30 04/11/25 16:00 04/11/25 16:15
MDM/Problems Addressed
Differential Diagnosis Includes:
Differential diagnosis to consider but not limited to pneumonia, COVID, flu, bronchitis, MATEO along with other etiologies considered
Chronic conditions affecting care:
Advanced age
*Radiology
Radiology exam reviewed: radiology read reviewed (Right lower lobe pneumonia)
*Pulse Oximetry
SaO2: 95
Oxygen Mode of Delivery: Room air
Patient hypoxic: no
*Critical Care Note
Total Time (30-74mins, 75-104mins- exclusive of procedures): Not Applicable
Update Note
Update Note:
Patient resting with stable vital signs. IV fluids administered. I discussed with patient presence of pneumonia and treatment with antibiotics. I discussed with patient somewhat reassuring labs and option for either discharge home for trial of
antibiotics versus overnight observation. She would like to discuss with her daughter. Will reassess
1630: Patient's daughter is present at bedside. Reviewed all test results along with anticipated normal healing course and strict return precautions. Patient and daughter feel comfortable with plan for discharge and no questions at the current
time. Patient given first dose of antibiotics prior to discharge. They have no questions
ED Attending Note
-
Portions of this chart may have been created with voice recognition software.� Occasional wrong word or��sound alike� substitutions may have occurred due to the inherent limitations of voice recognition software.
Discharge Plan
Departure
Patient Disposition: Home (Routine Discharge)
Date of Disposition: 04/11/25
Time of Disposition: 16:54
Patient with high blood pressure during this ER visit?: No
Discharge Problem:
Pneumonia
Instructions: Community-acquired pneumonia in adults
Prescriptions:
New
amoxicillin-pot clavulanate 875-125 mg tablet
1 tab PO Q12H Qty: 14 0RF
azithromycin [Zithromax] 250 mg tablet
250 mg PO DAILY Qty: 4 0RF
No Action
levothyroxine 50 MCG tablet
50 mcg PO DAILY
metaxalone [Skelaxin] 800 MG tablet
800 mg PO DAILYPRN PRN (Reason: muscle spasm)
ondansetron HCl [Zofran] 4 mg Tablet
4 mg PO Q6H PRN (Reason: nausea)
omeprazole [Prilosec] 40 mg Capsule,Delayed Release(Dr/Ec)
40 mg PO DAILY
topiramate [Topamax] 50 mg Tablet
75 mg PO BID
duloxetine 60 mg Capsule,Delayed Release(Dr/Ec)
60 mg PO DAILY
Prolia 60 mg/mL Syringe
60 mg SC [id number]
naltrexone 4.5 mg Capsule
PO
ondansetron 4 mg tablet,disintegrating
4 mg PO Q4H PRN (Reason: nausea and vomiting) Qty: 10 0RF
Referrals:
UNKNOWN - PT DOES,NOT KNOW [Family Provider]
Activity Restrictions/Additional Instructions:
Please follow-up with your family doctor in 2 days for reevaluation. Encourage fluids. Return to the ER for any concerns. Complete course of antibiotics as prescribed
Interventions
Interventions:
*Risk Screen - Suicide Last Done: 04/11/25 12:27
*General Assessment Last Done: 04/11/25 14:10
*Neglect/Abuse Screening Last Done: 04/11/25 14:10
*ED- Fall Risk Assessment Last Done: 04/11/25 14:10
*ED COVID-19 Vaccine History Last Done: 04/11/25 14:10
ED- Pulmonary Assessment Last Done: 04/11/25 16:39
Discharge Date and Time
Print Language: [id number]
[2025-04-11 16:00] VITALS: BP 112/56
[2025-04-11] MEDS: ROCEPHIN 1000 MG IV (16:22)
[2025-04-11] MEDS: ZITHROMAX 500 MG PO (16:22)
[2025-04-11] MEDS: DUONEB 3 ML INH (16:35)
== END 2025-04-11 17:59 | disposition home or self-care (01) ==
LOC: EMR 12:20
PROVIDERS: EMERGENCY PHYSICIAN Emergency Medicine
DX: J18.9 Pneumonia, unspecified organism (principal); E03.9 Hypothyroidism, unspecified; Z11.52 Encounter for screening for COVID-19
CPT/HCPCS: 99284; 96374; 96361; 94640; 71046; 80053; 85025; 87502; 87811

== ENCOUNTER → 2025-06-18 07:56 | Outpatient (REF) | payer MEDICARE, OTHER, SELFPAY ==
[2025-06-18 08:45] LABS: Hematocrit 37.2 % (37.0-47.0); Hemoglobin 11.6 g/dL (12.0-16.0); Mean Corp Hgb Conc. 31.2 g/dL (33.0-37.0); Mean Corpuscular Volume 96.4 fL (81.0-99.0); Nucleated Red Blood Cells % 0 %; Platelet Count 181 10^3/uL (130-400); Red Cell Dist. Width 13.6 % (11.5-14.5)
[2025-06-18 09:27] LABS: ALT (SGPT) 17 U/L (0-35); AST (SGOT) 21 U/L (14-36); Albumin 3.7 g/dl (3.5-5.0); Alkaline Phosphatase 55 U/L (38-126); Blood Urea Nitrogen 31 mg/dl (7-17); Calcium 8.6 mg/dl (8.4-10.2); Carbon Dioxide 26 mmol/L (22-30); Chloride 108 mmol/L (98-107); Glucose 81 mg/dl (70-99); HDL Cholesterol 53 mg/dl; LDL Cholesterol, Calculated 170 mg/dl; Potassium 4.4 mmol/L (3.5-5.1); Sodium 140 mmol/L (135-145); Total Protein 6.7 g/dl (6.3-8.2); Very Low Density Lipoprotein 22 mg/dl (0-30); eGFR 50.48
[2025-06-18 09:51] LABS: TSH 1.67 uIU/ml (0.47-4.68)
== END ==
LOC: REG 07:56
PROVIDERS: ATTENDING PHYSICIAN Internal Medicine; FAMILY PHYSICIAN Student in an Organized Health Care Education/Training Program
DX: K21.9 Gastro-esophageal reflux disease without esophagitis (principal); K92.1 Melena; E03.9 Hypothyroidism, unspecified; K59.09 Other constipation; E78.00 Pure hypercholesterolemia, unspecified
CPT/HCPCS: 36415; 80053; 80061; 84443; 85025

== ENCOUNTER 2025-07-23 22:08 | Emergency (ER) | payer MEDICARE, OTHER, SELFPAY ==
[2025-07-23 22:13] VITALS: BMI 22.7
[2025-07-23 22:16] VITALS: BP 183/85
--- NOTE | 2025-07-23 22:49 | ED.GENMED ---
History of Present Illness
<Mc Galloway MD, Resident - Last Filed: 07/24/25 01:46>
General
Chief Complaint: Fall
Time Seen by Provider: 07/23/25 22:45
History of Present Illness
History of Present Illness:
80 yo F PMH osteopenia, hypothyroidism, GERD presents after a fall from rolling off her bed while sleeping and hitting head/face on bedside table.
she doesn't remember what had happenned because she was sleeping and then had the fall. she is endorsing a heachache and neck pain but denying any further back pain.
no nausea/vomiting
she is not on any blood thinners.
she was on prolia for osteopenia but was told it is back to withn normal limits
no other focal tenderness in arms or legs
denies numbness or weakness in extremities
Patient lives with family
Has C-spine collar in place
Past History
<Mc Galloway MD, Resident - Last Filed: 07/24/25 01:46>
Past History
ED Past Medical History: Hypothyroidism and Other (Vertigo, gastroenteritis, vestibular migraine)
ED Past Surgical History: Orthopedic (Total knee replacement R&L knees)
Social History
Tobacco: Non-smoker
Alcohol: None
Drug: None
Living: with family
Employment: Retired
Family History
Family History: Other
Review of Systems
<Mc Galloway MD, Resident - Last Filed: 07/24/25 01:46>
Review of Systems
Constitutional: Reports no symptoms
EENT: Reports no symptoms
Respiratory: Reports no symptoms
Cardiac: Reports no symptoms
ABD/GI: Reports no symptoms
: Reports no symptoms
Musculoskeletal: Reports neck pain
Skin: Reports other (skin tear on right face)
Neurological: Reports headache
Phy Exam
<Mc Galloway MD, Resident - Last Filed: 07/24/25 01:46>
Physical Exam
Physical Exam:
VS: 183/85; HR 68, T 97.2
General: no acute distress
Neuro: PERRLA, EOMI, no periorbital ecchymosis, upper extremities 5/5, lower extremitites 5/5 strength
HEENT: right face skin tear
CV: no murmurs on my exam
Pulm: CTAB
GI: + bowel sounds, no tenderness to palpation
MSK: no lower extremity edema
Course
<Mc Galloway MD, Resident - Last Filed: 07/24/25 01:46>
Orders/Labs/Results
Orders:
Orders
07/23/25 22:37
CT Cervical Spine W/o Iv Contr Urgent
Comment:
Reason For Exam: fall
CT Head W/o Iv Contrast Urgent
Comment:
Reason For Exam: fall
07/23/25 23:26
Acetaminophen [Tylenol] 650 mg PO NOW STA
07/23/25 23:41
Tetanus/Diphth/Acelpertussis [Adacel] 0.5 ml IM .ONCE ONE
Vital Signs
Initial and Last Documented VS:
Initial Vital Signs
Temp
97.2 F
07/23/25 22:10
Last Documented Vital Signs
Temp Pulse Resp BP Pulse Ox
97.2 F 68 18 183/85 98
07/23/25 22:10 07/23/25 22:16 07/23/25 22:16 07/23/25 22:16 07/23/25 22:50
Lichalt;Alin Bailey, DO - Last Filed: 07/23/25 23:43>
Orders/Labs/Results
Orders:
Orders
07/23/25 22:37
CT Cervical Spine W/o Iv Contr Urgent
Comment:
Reason For Exam: fall
CT Head W/o Iv Contrast Urgent
Comment:
Reason For Exam: fall
07/23/25 23:26
Acetaminophen [Tylenol] 650 mg PO NOW STA
07/23/25 23:41
Tetanus/Diphth/Acelpertussis [Adacel] 0.5 ml IM .ONCE ONE
Vital Signs
Initial and Last Documented VS:
Initial Vital Signs
Temp
97.2 F
07/23/25 22:10
Last Documented Vital Signs
Temp Pulse Resp BP Pulse Ox
97.2 F 68 18 183/85 98
07/23/25 22:10 07/23/25 22:16 07/23/25 22:16 07/23/25 22:16 07/23/25 22:50
<Mc Galloway MD, Resident - Last Filed: 07/24/25 01:46>
MDM/Problems Addressed
Differential Diagnosis Includes:
mechanical fall, intracranial hemorrhage, subdural hematoma, C-spine fracture
MDM/Problems Addressed:
80 yo F p/w fall after rolling off side of bed while sleeping
not on blood thinner, PMHx of osteopenia
no nausea/vomiting
no focal tenderness on extremities
she reports last TDaP vaccination was in 2012
Plan:
CT H noncontrast
CT C-spine noncontrast
steri-strips for facial skin tear
TDaP vaccination
tylenol PO for pain control if needed
Update:
CT Head noncontrast: no acute intracranial abnormality
CT C-spine noncontrast: no fractures
Patient is medically stable to go home, and patient is okay to go home.
<Mc Galloway MD, Resident - Last Filed: 07/24/25 01:46>
*Pulse Oximetry
SaO2: 98
Oxygen Mode of Delivery: Room air
Patient hypoxic: no
*Critical Care Note
Total Time (30-74mins, 75-104mins- exclusive of procedures): Not Applicable
ED Attending Note
<Mc Galloway MD, Resident - Last Filed: 07/24/25 01:46>
-
Portions of this chart may have been created with voice recognition software.� Occasional wrong word or��sound alike� substitutions may have occurred due to the inherent limitations of voice recognition software.
<Alin Bailey, DO - Last Filed: 07/23/25 23:43>
ED Attending Note
Patient seen and examined by attending physician: Yes
I performed a history and physical exam of patient and discussed management with resident, I reviewed resident's note and agree with documented findings and plan of care.: Yes
ED Attending Note:
I agree with Dr. Galloway's note.
Patient rolled out of bed and suffering an injury to her right cheek. She is also complains of neck pain. No anticoagulants
General: Awake, Alert, Oriented X3. No acute distress.
Vitals: unremarkable
Head: Approximate quarter sized skin tear over the right cheek
Eyes: Pupils equal, EOMI
Throat: Airway intact, no exudates
Neck: Trachea midline
Lungs: Clear and equal b/l
Heart: Regular rate, no murmurs
Abd: Soft, Nontender, No pulsatile mass
Neuro: No focal weakness
Skin: Warm, dry, no rash
Extremities: pulses equal b/l, no edema
CT head and neck shows no acute abnormality. Skin tear approximated with Steri-Strips. Stable for discharge home. Tetanus updated.
Discharge Plan
Departure
Patient Disposition: Home (Routine Discharge)
Date of Disposition: 07/24/25
Time of Disposition: 01:44
Patient with high blood pressure during this ER visit?: Yes
Discharge Problem:
Fall
Prescriptions:
No Action
levothyroxine 50 MCG tablet
50 mcg PO DAILY
metaxalone [Skelaxin] 800 MG tablet
800 mg PO DAILYPRN PRN (Reason: muscle spasm)
ondansetron HCl [Zofran] 4 mg Tablet
4 mg PO Q6H PRN (Reason: nausea)
omeprazole [Prilosec] 40 mg Capsule,Delayed Release(Dr/Ec)
40 mg PO DAILY
topiramate [Topamax] 50 mg Tablet
75 mg PO BID
duloxetine 60 mg Capsule,Delayed Release(Dr/Ec)
60 mg PO DAILY
Prolia 60 mg/mL Syringe
60 mg SC [id number]
naltrexone 4.5 mg Capsule
PO
ondansetron 4 mg tablet,disintegrating
4 mg PO Q4H PRN (Reason: nausea and vomiting) Qty: 10 0RF
amoxicillin-pot clavulanate 875-125 mg tablet
1 tab PO Q12H Qty: 14 0RF
azithromycin [Zithromax] 250 mg tablet
250 mg PO DAILY Qty: 4 0RF
cefpodoxime 200 mg tablet
200 mg PO Q12H Qty: 14 0RF
Referrals:
Helen Castillo MD [Family Provider, Internal Medicine] - Follow up in 10 days
Activity Restrictions/Additional Instructions:
You came in because you experienced a fall. Your CT Head noncontrast and CT C-spine noncontrast were negative for acute intracranial abnormality and negative for fractures.
Please follow-up with your primary care doctor after discharge. If you experience a severe headache, please seek care or present to the nearest ER.
Interventions
Interventions:
*General Assessment Last Done: 07/23/25 22:17
*Neglect/Abuse Screening Last Done: 07/23/25 22:17
*ED COVID-19 Vaccine History Last Done: 07/23/25 22:17
*ED Influenza Vaccine History Last Done: 07/23/25 22:17
[facility] Risk Assessment Tool Last Done: 07/23/25 22:15
*Risk Screen - Suicide (C-SSRS) Last Done: 07/23/25 22:17
ED-Musculoskeletal Assessment Last Done: 07/23/25 22:45
ED- Neurological Assessment Last Done: 07/23/25 22:45
ED-Skin Assessment Last Done: 07/23/25 22:45
Discharge Date and Time
Print Language: UKRAINIAN
[2025-07-23] MEDS: TYLENOL 650 MG PO (23:53)
[2025-07-23] MEDS: ADACEL 0.5 ML IM (23:54)
[2025-07-24] VITALS: BP 123/73
== END 2025-07-24 02:03 | disposition home or self-care (01) ==
LOC: EMR 22:08
PROVIDERS: EMERGENCY PHYSICIAN Emergency Medicine; FAMILY PHYSICIAN Student in an Organized Health Care Education/Training Program
DX: S01.411A Laceration without foreign body of right cheek and temporomandibular area, initial encounter (principal); M54.2 Cervicalgia; W06.XXXA Fall from bed, initial encounter; E03.9 Hypothyroidism, unspecified; Z96.651 Presence of right artificial knee joint; Z23 Encounter for immunization
CPT/HCPCS: 99284; 90471; 70450; 72125; 90715